=== PATIENT | male | born 1930 | race Caucasian/White ===

== ENCOUNTER → 2018-02-13 | Emergency (ER) | payer MEDICARE, OTHER ==
[~2018-02-13] VITALS: Ht 177.8 cm; Wt 72.3 kg
[~2018-02-13] MED LIST: PHEN100C4 PO; phenytoin sod ER 100mg capsule PO ONE
[2018-02-13 19:09] VITALS: BP 161/61
== END | disposition home or self-care (01) ==
LOC: ER 18:58
DX: G40.409 Other generalized epilepsy and epileptic syndromes, not intractable, without status epilepticus (principal); Z76.0 Encounter for issue of repeat prescription
CPT/HCPCS: 99282